=== PATIENT | male | born 1995 | race Caucasian/White ===

== ENCOUNTER 2018-03-10 13:26 | Outpatient (CLI) | payer OTHER ==
[~2018-03-10 13:26] MED LIST: Gadobenate Dimeglumine 529 MG/1 ML (20ML VIAL) ONE
--- NOTE | 2018-03-10 15:13 | MRI ---
MRI BRAIN WITH AND WITHOUT CONTRAST MRI INTERNAL AUDITORY CANAL WITH AND WITHOUT CONTRAST: Date: 03/10/18 CLINICAL HISTORY: Hearing loss, vertigo, dizziness. FINDINGS: There is normal size of the ventricular system. No shift of midline structures or evidence of acute t erritorial infarction. There is no pathologic intra-axial enhancement. There is no evidence of mass o r pathologic enhancement of either internal auditory canal/CP angle cistern. IMPRESSION: 1. No acute intracranial abnormalities. 2. No evidence of mass or pathologic enhancement of the IACs/CP angle cisterna regions, bilaterally. POS: DEV
== END 2018-03-10 13:27 | disposition home or self-care (01) ==
LOC: SCSMRI 13:26
PROVIDERS: ATTEND Otolaryngology Plastic Surgery within the Head & Neck
DX: H91.90 Unspecified hearing loss, unspecified ear (principal)
CPT/HCPCS: 70553; A9579